=== PATIENT | female | born 1995 | race Caucasian/White ===

== ENCOUNTER → 2017-06-25 | Outpatient (CLI) | payer BC ==
[2012-11-08 00:45] VITALS: BP 112/54
[2017-06-25 10:34] LABS: EOS # 0.1 (0.04-0.40); EOS % 0.6 % (0.1-4.0); HEMATOCRIT 37.8 % (35.0-45.0); HEMOGLOBIN 12.2 g/dL (12.0-15.0); LYMPH# 2.1 (1.20-3.40); MEAN CELL VOLUME 83 fl (78-95); MEAN CORPUSCULAR HEMOGLOBIN 27 pg (26-32); MEAN CORPUSCULAR HGB CONC 32 g/dL (33-37); MEAN PLATELET VOLUME 10.3 fl (7.4-10.4); MONO # 0.9 (0.10-0.60); NEU # 7.3 (1.40-6.50); PLATELET COUNT 311 K/mm3 (130-400); RED BLOOD COUNT 4.53 M/mm3 (4.10-5.30); RED CELL DISTRIBUTION WIDTH 13.5 % (11.5-14.5); WHITE BLOOD COUNT 10.5 K/mm3 (4.8-10.8)
[2017-06-25 11:47] LABS: ALBUMIN 3.7 g/dL (3.5-5.0); BUN/CREATININE RATIO 22.5 (6.0-26.0); CALCIUM 8.7 mg/dL (8.4-10.2); POTASSIUM 4.1 mmol/L (3.6-5.0); TOTAL BILIRUBIN 0.1 mg/dL (0.2-1.3); TOTAL PROTEIN 7.1 g/dL (6.3-8.2)
== END ==
LOC: LAB 09:41
PROVIDERS: Nurse Practitioner Family
DX: R10.33 Periumbilical pain (principal)

== ENCOUNTER → 2017-10-29 | Outpatient (CLI) | payer BC ==
[2012-11-08 00:45] VITALS: BP 112/54
[~2017-10-29] VITALS: Ht 175.3 cm; Wt 132.3 kg
[~2017-10-29] MED LIST: LEXAPRO20 M1 PO; MONONESSA 35 MC1 TA1 PO
== END ==
LOC: AMSURD 17:29
DX: R07.9 Chest pain, unspecified (principal)